=== PATIENT | male | born 1935 | race Caucasian/White ===

== ENCOUNTER 2016-04-13 01:19 | Emergency (ER) | payer MEDICARE, MEDICAID ==
[~2016-04-13] VITALS: Ht 167.6 cm; Wt 72.6 kg
[~2016-04-13 01:19] MED LIST: TRAMADOL HCL50 MG ORAL; TYLENOL PO
[2016-04-13 01:20] VITALS: BP 143/74
[2016-04-13 02:29] LABS: EOSINOPHILS % (AUTO) 2.5 % (0.0-3.0); LYMPHOCYTES % (AUTO) 24.5 % (20.0-45.0); MEAN CORPUSCULAR HEMOGLOBIN 30.3 PG (27.0-31.0); MEAN CORPUSCULAR VOLUME 89 FL (80-99); MEAN PLATELET VOLUME 6.5 FL (6.5-10.1); MONOCYTES % (AUTO) 11.6 % (1.0-10.0); NEUTROPHILS % (AUTO) 60.4 % (45.0-75.0); PLATELET COUNT 260 K/UL (150-450); RED BLOOD COUNT 5.39 M/UL (4.70-6.10); RED CELL DISTRIBUTION WIDTH 12.8 % (11.6-14.8); WHITE BLOOD COUNT 7.1 K/UL (4.8-10.8)
[2016-04-13 02:29] LABS: APPEARANCE,URINE CLEAR; KETONES,URINE 1+ (NEGATIVE); LEUKOCYTE ESTERASE ,URINE 1+ (NEGATIVE); NITRITE,URINE NEGATIVE (NEGATIVE); PH,URINE 5 (4.5-8.0); PROTEIN,URINE 2+ (NEGATIVE); UROBILINOGEN,URINE 1 MG/DL (0.0-1.0)
[2016-04-13 02:37] LABS: SQUAMOUS EPITHELIAL CELL,UR FEW /LPF (NONE/OCC); WBC,URINE 0-2 /HPF (0 - 0)
[2016-04-13 02:38] LABS: BACTERIA,URINE FEW /HPF; FINE GRANULAR CASTS,URINE 0-2 /LPF; HYALINE CASTS, URINE 0-2 /LPF; MUCUS,URINE FEW /LPF (NONE/OCC)
[2016-04-13 02:40] LABS: TROPONIN I < 0.30 ng/mL (<=0.30)
[2016-04-13 02:43] LABS: ALANINE AMINOTRANSFERASE 23 U/L (3-41); ANION GAP 17 (5-15); ASPARTATE AMINO TRANSFERASE 38 U/L (5-40); CALCIUM 9.3 mg/dL (8.6-10.2); CARBON DIOXIDE 20 mEQ/L (20-30); CHLORIDE 96 mEQ/L (98-107); CREATININE 0.9 mg/dL (0.7-1.2); HEMOLYSIS 6; POTASSIUM 3.6 mEQ/L (3.4-4.9); SODIUM 133 mEQ/L (135-145); TOTAL PROTEIN 7.1 g/dL (6.6-8.7)
[2016-04-13 02:53] LABS: CKMB 10.3 ng/mL (< 6.7)
[2016-04-13 03:04] LABS: BILIRUBIN,DIRECT 0.3 mg/dL (0.1-0.3)
[2016-04-13] MEDS ORDERED: ATIVAN1 MG ORAL (03:19)
[2016-04-13] MEDS ORDERED: LORazepam Inj 2mg/ml 1ml IV ONE (03:30)
[2016-04-13 04:07] VITALS: BP_SYST 143; BP_SYST 148; BP_DIAS 74; BP_DIAS 78
--- NOTE | 2016-04-13 04:15 | Emergency Room Report ---
History of Present Illness General Chief Complaint: Altered Level of Consciousness Source: Medical Record Present Illness HPI 81-year-old male presents ED for evaluation. Per EMS patient was sent to hospital because he was agitated, screaming at the staff [facility]. [facility] called 911. Denies history of dementia. Upon arrival patient is calm, not screaming or yelling. Showing no signs of distress. No reported fevers or chills. No reported chest pain shortness of breath. Patient is stating that he is having pain in his left shoulder, states he was in a "football injury". Unable to provide any additional history at this time. No aggravating relieving factors. No other associated symptoms Allergies: Coded Allergies: No Known Allergies (Unverified , 04/13/16) Patient History Past Medical History: HTN, dementia Past Surgical History: none Pertinent Family History: none Social History: Denies: alcohol use, drug use, smoking Immunizations: UTD Reviewed Nursing Documentation: PMH: Agreed, PSxH: Agreed Nursing Documentation-PMH Hx Hypertension: Yes History Of Psychiatric Problem: Yes - DEMENTIA Review of Systems All Other Systems: negative except mentioned in HPI Physical Exam Vital Signs Date Time Temp Pulse Resp B/P Pulse Ox O2 Delivery O2 Flow Rate FiO2 04/13/16 01:11 98.2 76 18 132/78 93 Room Air Sp02 EP Interpretation: reviewed, normal General Appearance: other - dementia Head: normocephalic Eyes: bilateral eye PERRL, bilateral eye normal inspection ENT: normal ENT inspection Neck: normal inspection Respiratory: chest non-tender, lungs clear, normal breath sounds, speaking full sentences Cardiovascular #1: regular rate, rhythm, no edema Gastrointestinal: normal bowel sounds, non tender, soft, non-distended, no guarding, no rebound Rectal: deferred Genitourinary: no CVA tenderness Musculoskeletal: tender - L shoulder - full ROM passively Neurologic: other - dementia Psychiatric: other - dementia Skin: normal inspection Lymphatic: normal inspection Procedures Splinting Splinting : Consent: Emergent Pre-Made Type: L shoulder sling Pre-Proc Neuro Vasc Exam: normal Post-Proc Neuro Vasc Exam: normal Patient Tolerated: Well Complications: None Medical Decision Making Diagnostic Impression: Primary Impression: Dementia Qualified Codes: F03.91 - Unspecified dementia with behavioral disturbance Additional Impression: Shoulder pain, left Qualified Codes: M25.512 - Pain in left shoulder ER Course 81-year-old male presents ED with agitation, screaming yelling at staff. History of dementia. Left shoulder pain Differential-delirium, dementia, dehydration, sepsis, fracture, dislocation Patient placed on stretcher. After initial history and physical I ordered labs , IV fluids, EKG, chest x-ray, left shoulder x-ray Labs-no leukocytosis, hemoglobin/hematocrit stable, electrolytes okay, UA negative, troponins negative EKG-normal sinus rhythm, no ischemic changes Chest x-ray, some cardiomegaly Shoulder x-ray shows questionable humeral head fracture, unclear on acuity Patient placed in a shoulder sling Patient remains calm in ED. Discussed findings with SNF and they agreed to accept the patient pending patient is discharged on medication for agitation Patient given Ativan in ED Diagnoses-dementia, left shoulder pain Stable and discharged to SNF with prescription for Ativan, placed in left shoulder sling. Followup with PMD. Return to ED if symptoms recur or worsen Labs Test 04/13/16 01:56 04/13/16 02:15 White Blood Count 7.1 K/UL (4.8-10.8) Red Blood Count 5.39 M/UL (4.70-6.10) Hemoglobin 16.3 G/DL (14.2-18.0) Hematocrit 48.1 % (42.0-52.0) Mean Corpuscular Volume 89 FL (80-99) Mean Corpuscular Hemoglobin 30.3 PG (27.0-31.0) Mean Corpuscular Hemoglobin Concent 34.0 G/DL (32.0-36.0) Red Cell Distribution Width 12.8 % (11.6-14.8) Platelet Count 260 K/UL (150-450) Mean Platelet Volume 6.5 FL (6.5-10.1) Neutrophils (%) (Auto) 60.4 % (45.0-75.0) Lymphocytes (%) (Auto) 24.5 % (20.0-45.0) Monocytes (%) (Auto) 11.6 % (1.0-10.0) Eosinophils (%) (Auto) 2.5 % (0.0-3.0) Basophils (%) (Auto) 1.0 % (0.0-2.0) Sodium Level 133 mEQ/L (135-145) Potassium Level 3.6 mEQ/L (3.4-4.9) Chloride Level 96 mEQ/L (98-107) Carbon Dioxide Level 20 mEQ/L (20-30) Anion Gap 17 (5-15) Blood Urea Nitrogen 23 mg/dL (7-23) Creatinine 0.9 mg/dL (0.7-1.2) Estimat Glomerular Filtration Rate mL/min (>60) Glucose Level 102 mg/dL (74-106) Lactic Acid Level 1.80 mmol/L (0.66-2.22) Calcium Level 9.3 mg/dL (8.6-10.2) Total Bilirubin 1.2 mg/dL (0.0-1.2) Direct Bilirubin 0.3 mg/dL (0.1-0.3) Aspartate Amino Transf (AST/SGOT) 38 U/L (5-40) Alanine Aminotransferase (ALT/SGPT) 23 U/L (3-41) Alkaline Phosphatase 65 U/L (40-129) Total Creatine Kinase 530 U/L (38-174) Creatine Kinase MB 10.3 ng/mL (< 6.7) Creatine Kinase MB Relative Index 1.9 Troponin I < 0.30 ng/mL (<=0.30) Pro-B-Type Natriuretic Peptide 201 pg/mL (0-450) Total Protein 7.1 g/dL (6.6-8.7) Albumin 3.7 g/dL (3.5-5.2) Globulin 3.4 g/dL Albumin/Globulin Ratio 1.0 (1.0-2.7) Urine Color Yellow Urine Appearance Clear Urine pH 5 (4.5-8.0) Urine Specific [place] 1.025 (1.005-1.035) Urine Protein 2+ (NEGATIVE) Urine Glucose (UA) Negative (NEGATIVE) Urine Ketones 1+ (NEGATIVE) Urine Occult Blood 1+ (NEGATIVE) Urine Nitrite Negative (NEGATIVE) Urine Bilirubin Negative (NEGATIVE) Urine Urobilinogen 1 MG/DL (0.0-1.0) Urine Leukocyte Esterase 1+ (NEGATIVE) Urine RBC 2-4 /HPF (0 - 0) Urine WBC 0-2 /HPF (0 - 0) Urine Squamous Epithelial Cells Few /LPF (NONE/OCC) Urine Bacteria Few /HPF (NONE) Urine Hyaline Casts 0-2 /LPF (NONE) Urine Fine Granular Casts 0-2 /LPF (NONE) Urine Coarse Granular Casts 2-4 /LPF (NONE) Urine Mucus Few /LPF (NONE/OCC) EKG Diagnostic Results Rate: normal Rhythm: NSR ST Segments: no acute changes ASA given to the pt in ED: No Rhythm Strip Diag. Results EP Interpretation: yes Rhythm: NSR, no PVC's, no ectopy Chest X-Ray Diagnostic Results EP Interpretation: Yes Findings: no consolidation, no effusion, no pneumothorax, no acute cardiopulmonary disease Number of Views: 1 Other X-Ray Diagnostic Results Other X-Ray Diagnostic Results : X-Ray Ordered: L shoulder EP Interpretation: Yes Findings: no dislocation, no soft tissue swelling, other - ? fx humeral head Number of Views: 3 Last Vital Signs Date Time Temp Pulse Resp B/P Pulse Ox O2 Delivery O2 Flow Rate FiO2 04/13/16 01:20 98.2 66 18 143/74 94 Room Air Status: improved Disposition: XFER SNF Condition: Stable Scripts Lorazepam* (ATIVAN*) 1 Mg Tablet 1 MG ORAL Q6HR, #30 TAB Prov: EDGARDO SANCHEZ M.D. 04/13/16 Patient Instructions: Dementia, [id number] EDGARDO SANCHEZ M.D. Apr 13, 2016 04:14
--- NOTE | 2016-04-13 10:00 | Cardiology Report ---
APPROVED REPORT EKG Measurement Heart [id number] Normal sinus rhythm Nonspecific T wave abnormality Abnormal ECG
--- NOTE | 2016-04-13 10:54 | Diagnostic Imaging Report ---
Indication: Chest Pain Comparison: None A single view chest radiograph was obtained. Findings: No definite infiltrate or pulmonary vascular congestion identified. The left hemidiaphragm is slightly elevated. The heart is enlarged. The aorta is mildly enlarged consistent with atherosclerotic vascular disease. The bones are osteopenic. Impression: No acute disease Elevated left hemidiaphragm
--- NOTE | 2016-04-13 10:54 | Diagnostic Imaging Report ---
Indication: Pain Findings: 3 views of the left shoulder were obtained. There is a generalized osteopenia. There is no malalignment or fracture identified. Impression: Negative study
== END 2016-04-13 04:14 ==
LOC: EDBD 01:19 → EMR 02:11
DX: F03.91 Unspecified dementia, unspecified severity, with behavioral disturbance (principal); M25.512 Pain in left shoulder; R45.1 Restlessness and agitation; I51.7 Cardiomegaly; M85.812 Other specified disorders of bone density and structure, left shoulder
CPT/HCPCS: 29240; 36415; 71010; 80053; 81003; 82248; 82550; 82553; 82962; 83605; 83880; 84484; 85025; 87040; 93005; 96360; 96374